=== PATIENT | female | born 1985 | race Caucasian/White ===

== ENCOUNTER 2016-11-20 15:59 | Emergency (ER) | payer BC, OTHER ==
[~2016-11-20] VITALS: Ht 157.5 cm; Wt 80.0 kg
[2016-11-20] MEDS ORDERED: SODIUM CHLORIDE FLUSH 10 ML SYR IV PRN (16:35)
[2016-11-20] MEDS ORDERED: ONDANSETRON 2 MG/ML (Z0FRAN) 2 ML VIAL IV ONE (16:35)
[2016-11-20] MEDS ORDERED: HYDROmorphone 1 MG/ML (DILAUDID) SYRINGE IV ONE (16:35)
[2016-11-20 16:57] LABS: BASOPHILS % (AUTO) 0 % (0-2); EOSINOPHILS # (AUTO) 0.2 10^3uL; EOSINOPHILS % (AUTO) 2 % (0-4); MEAN CORPUSCULAR HEMOGLOBIN 31.1 PG (26.0-34.0); MEAN CORPUSCULAR HGB CONC 34.8 g/dL (31.0-37.0); MEAN CORPUSCULAR VOLUME 89 FL (80-100); MEAN PLATELET VOLUME 9.4 FL (6.0-9.5); MONOCYTES # (AUTO) 0.8 X10^3; MONOCYTES % (AUTO) 11 % (3-11); NEUTROPHILS # (AUTO) 3.5 X10^3; NEUTROPHILS % (AUTO) 47 % (51-67); PLATELET COUNT 320 10^3uL (150-450); WHITE BLOOD COUNT 7.56 10^3uL (4.0-11.0)
[2016-11-20 17:08] LABS: BILIRUBIN,URINE Negative (Negative); CLARITY,URINE Cloudy; COLOR,URINE Dark Yellow; GLUCOSE, URINE (UA) Negative (Negative); LEUKOCYTE ESTERASE ,URINE Negative (Negative); PH,URINE 5.5 (5.0 - 8.0); UROBILINOGEN,URINE 0.2 mg/dL (0.2-1.0)
[2016-11-20 17:10] LABS: ALBUMIN 3.9 g/dL (3.4-5.0); ANION GAP 11.8 MEQ/L (3-15); CALCULATED IONIZED CALCIUM 3.9 mg/dL (3.8-4.6)
[2016-11-20 17:15] LABS: URINE CENTRIFUGED VOLUME 12 mL
[2016-11-20] MEDS ORDERED: SULFAMETHOXAZOLE/TRIMETHOPRIM 800-160 MG (SEPTRA DS) TAB PO ONE (17:50)
[2016-11-20] MEDS ORDERED: ED- HYDROcodone/ACETAMINOPHEN 5MG/325MG (NORCO) 6 TABLETS/BTL PO ONE (17:50)
[2016-11-20 18:21] VITALS: BP 133/100
== END 2016-11-20 18:21 | disposition home or self-care (01) ==
LOC: ED 16:06
DX: G89.18 Other acute postprocedural pain (principal); N39.0 Urinary tract infection, site not specified
CPT/HCPCS: 36415; 80053; 81003; 81015; 85025; 85610; 85730; 86140; 87088; 96361; 96374; 96375; 99284; J1170; J2405; J7030; 87077; 87186; 99283